=== PATIENT | female | born 1955 | race Caucasian/White ===

== ENCOUNTER → 2019-01-13 | Outpatient (CLI) | payer BC, MEDICARE ==
--- NOTE | 2019-01-13 09:16 | Diagnostic Imaging Report ---
PROCEDURE: US Gallbladder. TECHNIQUE: Multiple real-time grayscale images were obtained over the right upper quadrant in various projections. INDICATION: Left upper quadrant pain. The liver is normal in size at 14.1 cm. There does appear to be some increased echogenicity to the liver suggestive of hepatic steatosis. Portal vein is patent and shows normal direction of flow. No gallstones are identified. No wall thickening or biliary duct dilatation is seen. There may be minimal sludge in the gallbladder. Pancreas is obscured by bowel gas. Right kidney is unremarkable. There is no ascites. IMPRESSION: 1. Hepatic steatosis. 2. No evidence of cholelithiasis or acute cholecystitis. Dictated by: Dictated on workstation # [id number]
== END ==
LOC: RAD FS 08:07
PROVIDERS: ATTEND Surgery
DX: K76.0 Fatty (change of) liver, not elsewhere classified (principal)
CPT/HCPCS: 76705

== ENCOUNTER → 2019-02-24 | Outpatient (CLI) | payer MEDICARE ==
[~2019-02-24] MED LIST: CATHETER FLUSH 10 ML SYR IV PRN
--- NOTE | 2019-02-24 16:10 | Diagnostic Imaging Report ---
Indication: Right upper quadrant pain and nausea. Nuclear hepatobiliary study performed in the routine fashion with IV injection of 5.31 mCi technetium 99m Choletec. There is prompt uptake of the tracer by the liver. Tracer is visualized in the gallbladder within 30 minutes. Tracer is visualized in the biliary tree within about 15 to 20 minutes. Tracer is visualized in the small bowel within one hour. Patient was then given and ensure orally. The gallbladder ejection fraction was calculated. Calculated gallbladder ejection fraction was 22.5%. Impression: No evidence of cystic duct or common duct obstruction. There is however decreased gallbladder ejection fraction of 22.5% compatible with biliary dyskinesia. Dictated by: Dictated on workstation # [id number]
== END ==
LOC: CARD 11:34
PROVIDERS: ATTEND Surgery
DX: R10.13 Epigastric pain (principal); R10.11 Right upper quadrant pain; R11.0 Nausea; K82.8 Other specified diseases of gallbladder
CPT/HCPCS: 78227

== ENCOUNTER → 2019-03-11 | Outpatient (CLI) | payer MEDICARE ==
--- NOTE | 2019-03-11 13:28 | Diagnostic Imaging Report ---
INDICATION: Left-sided abdominal pain, status post cholecystectomy yesterday. TECHNIQUE: 2 supine view of the abdomen 10:24 AM CORRELATION STUDY: None FINDINGS: Lung bases are clear. Slight eventration of the right diaphragm. Cholecystectomy clips right upper quadrant. There does appear to be likely some degree of retained gastric contents. Mild severity of fecal retention. No findings to suggest high-degree bowel obstruction. No definitive pathologic intraabdominal calcifications or evidence for unexpected postoperative foreign body in the area is imaged. IMPRESSION: 1. Cholecystectomy clips. Nonobstructing-appearing bowel gas pattern. Dictated by: Dictated on workstation # [id number]
== END ==
LOC: RAD FS 10:12
PROVIDERS: ATTEND Surgery
DX: R10.9 Unspecified abdominal pain (principal); Z90.49 Acquired absence of other specified parts of digestive tract
CPT/HCPCS: 74018

== ENCOUNTER → 2019-03-25 | Outpatient (CLI) | payer MEDICARE ==
[~2019-03-25] MED LIST changes: +HOLD METFORMIN - RECEIVED CONTRAST 20 ML VIAL IV SCH; +IOHEXOL 350 MG/ML 100 ML (OMNIPAQUE 350) VIAL IV ONE; +NS 100 ML (IVPB) BAG IV ONE
[2019-03-25 09:21] LABS: CREATININE SERUM 0.95 MG/DL (0.60-1.30)
--- NOTE | 2019-03-25 11:34 | Diagnostic Imaging Report ---
PROCEDURE: CT abdomen and pelvis with contrast. TECHNIQUE: Multiple contiguous axial images were obtained through the abdomen and pelvis after administration of intravenous contrast. Auto Exposure Controls were utilized during the CT exam to meet ALARA standards for radiation dose reduction. INDICATION: Left-sided abdominal pain. Recent cholecystectomy. COMPARISON: None. FINDINGS: Included portions of the lung bases are clear. CT abdomen: Normal appendix cannot be adequately identified, but may be surgically absent. Small bowel loops are nondistended. Evaluation of kidneys suggests 6 mm calculus within the left renal pelvis. There is also suggestion of small 4 mm calculus within the superior pole on the left. These are, however, obscured by the postcontrast only nature of the exam. Conceivably, these findings could be artifactual and related to early excretion of contrast. There is no hydroureteronephrosis or other evidence of obstruction. No focal renal masses are seen. Liver is diffusely hypodense on this postcontrast exam consistent with background of hepatic steatosis. Otherwise, the liver, adrenal glands, spleen, and pancreas have a normal CT appearance. There is no loculated fluid collection, free fluid, nor free air within the abdomen. No abnormal mesenteric or retroperitoneal adenopathy is identified. Bony structures show no acute abnormalities. There is mild scattered calcified aortic and arterial atherosclerosis. CT pelvis: Urinary bladder is unopacified. No calculi are seen within urinary bladder. There is no loculated fluid collection, free fluid, nor free air within the pelvis. No abnormal lymph nodes are identified. Bony structures show no acute abnormalities. IMPRESSION: 1. Probable nonobstructive left renal calculi as described above. Alternatively, findings could be artifactual and related to excretion of contrast. Correlation with noncontrast exam would be of benefit. Additionally, if there is concern for underlying obstruction, nuclear medicine Lasix scan may be of benefit. 2. Hepatic steatosis. Dictated by: Dictated on workstation # [id number]
== END ==
LOC: RAD FS 08:29
PROVIDERS: ATTEND Surgery
DX: K76.0 Fatty (change of) liver, not elsewhere classified (principal); I70.0 Atherosclerosis of aorta
CPT/HCPCS: 36415; 74177; 82565; 84520

== ENCOUNTER → 2021-07-12 | Outpatient (CLI) | payer MEDICARE ==
--- NOTE | 2021-07-12 12:39 | Diagnostic Imaging Report ---
EXAMINATION: Abdomen, 1 view. HISTORY: Kidney stone. COMPARISON: 03/11/2019. FINDINGS: There are cholecystectomy clips. There is a mild amount of stool in the colon. There are no calcifications seen projecting over the kidneys or ureters. A phlebolith is present in the pelvis. IMPRESSION: No calcifications projecting over the kidneys or ureters. Dictated by: Dictated on workstation # [id number]
== END ==
LOC: RAD FS 11:28
PROVIDERS: ATTEND Family Medicine
DX: N20.0 Calculus of kidney (principal)
CPT/HCPCS: 74018

== ENCOUNTER → 2021-08-17 | Outpatient (CLI) | payer MEDICARE ==
--- NOTE | 2021-08-17 09:32 | Diagnostic Imaging Report ---
PROCEDURE: CT urinary tract, rule out kidney stone. TECHNIQUE: Multiple contiguous axial images were obtained through the abdomen and pelvis without the use of intravenous contrast. Auto Exposure Controls were utilized during the CT exam to meet ALARA standards for radiation dose reduction. INDICATION: Hematuria, right flank pain for one month Comparison is made with a prior study from 03/25/2019. The lung bases are clear. There is no effusion. The gallbladder is absent. The liver and bile ducts are normal. The spleen, pancreas and adrenals are normal. There is a 3 mm nonobstructing calculus in the upper pole of the left kidney. There is a punctate nonobstructing calculus in the lower pole of the right kidney. No mass or hydronephrosis is seen on either side. The ureters and bladder are normal. There is no pelvic mass. There is no acute bowel abnormality. There are scattered calcifications of the abdominal aorta with no aneurysmal dilatation. There is no adenopathy. There is no acute bony abnormality. IMPRESSION: There is a small nonobstructing stone in each kidney with no acute abnormality seen. Dictated by: Dictated on workstation # [id number]
== END ==
LOC: RAD FS 08:40
PROVIDERS: ATTEND Family Medicine
DX: N20.0 Calculus of kidney (principal)
CPT/HCPCS: 74176

== ENCOUNTER → 2022-07-25 | Outpatient (CLI) | payer MEDICARE ==
[2022-07-25 12:55] LABS: CREATININE SERUM 1.16 MG/DL (0.60-1.30)
--- NOTE | 2022-07-25 18:20 | Diagnostic Imaging Report ---
PROCEDURE: CT neck soft tissue with contrast. TECHNIQUE: Multiple contiguous axial images were obtained through the neck after the administration of contrast. Auto Exposure Controls were utilized during the CT exam to meet ALARA standards for radiation dose reduction. INDICATION: Throat pain. Neck mass. No relevant comparison available. FINDINGS: The visualized intracranial contents demonstrate no evidence of mass effect or abnormal intracranial enhancement. Orbits demonstrate previous ocular lens replacement. The paranasal sinuses demonstrate mucosal thickening in the right maxillary sinus and are otherwise clear. The middle ears and mastoids appear clear. The posterior nasopharynx and oropharynx appear appropriately symmetric. There is no displacement of the parapharyngeal fat planes. The base of the tongue is symmetric. There is no evidence of an abnormal process within the prevertebral or retropharyngeal space. There is no thickening of the epiglottis. The vallecula and piriform sinuses are well aerated and clear. The vocal folds are symmetric. There is no widening of the anterior commissure. There is no abnormal process within the preepiglottic or paraglottic fat planes. The subglottic trachea is unremarkable. The visualized portion of the esophagus is normal. The patient is status post a prior thyroidectomy. There appears to be a small remnant present on the left. No convincing evidence of a remnant on the right. There is a hyperdense nodule demonstrated below the hyoid and at the anterior margins of the thyroid cartilage that appears intimately associated with the strap muscles. 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 This measures 18 mm craniocaudal with maximum axial dimensions of 9 x 7 mm. The lesion is dense, and it is unclear if this is a component of enhancement or if there are dense contents within this process as there is no noncontrast portion of this exam. No pathologically enlarged cervical lymph nodes are evident. The vascular structures of the neck are unremarkable. The lung apices are clear. There are features of centrilobular emphysema. There is no acute process within the cervical spine. IMPRESSION: 1. Previous operative changes of thyroidectomy with an apparent small left-sided thyroid remnant. 2. Hyperdense rounded structure at midline below the thyroid extending into the upper margin of the thyroid cartilage and associated with the strap muscles. 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 3. Aerodigestive tract appears appropriately symmetric. 4. No abnormal mucosal-based mass lesion evident. 5. No pathologically enlarged cervical lymph nodes. Dictated by: Dictated on workstation # [id number]
== END ==
LOC: RAD FS 12:14
PROVIDERS: ATTEND Otolaryngology Otolaryngology/Facial Plastic Surgery
DX: R22.1 Localized swelling, mass and lump, neck (principal); R07.0 Pain in throat; Z90.89 Acquired absence of other organs
CPT/HCPCS: 36415; 70491; 82565; 84520; Q9967

== ENCOUNTER → 2023-01-17 | Outpatient (CLI) | payer MEDICARE | LOC: CARD 13:36 | PROVIDERS: ATTEND Family Medicine | DX: I34.0 Nonrheumatic mitral (valve) insufficiency (principal) | CPT/HCPCS: 93306 ==

== ENCOUNTER → 2023-02-12 | Outpatient (CLI) | payer MEDICARE ==
[~2023-02-12] MED LIST changes: -CATHETER FLUSH 10 ML SYR IV PRN; -HOLD METFORMIN - RECEIVED CONTRAST 20 ML VIAL IV SCH; -IOHEXOL 350 MG/ML 100 ML (OMNIPAQUE 350) VIAL IV ONE; -NS 100 ML (IVPB) BAG IV ONE; +RT-ALBUTEROL SULF 2.5 MG/3 ML PRE-MIX VIAL INH ONE
== END ==
LOC: RT 10:45
PROVIDERS: ATTEND Nurse Practitioner Family
DX: R06.02 Shortness of breath (principal); Z87.891 Personal history of nicotine dependence
CPT/HCPCS: 94060; 94726; 94729

== ENCOUNTER 2023-03-26 14:20 | Emergency (ER) | payer MEDICARE, MEDICAID ==
[2023-03-26] MEDS ORDERED: ACETAMINOPHEN 500 MG TAB (TYLENOL) PO ONE (14:30)
[2023-03-26] MEDS ORDERED: LACTATED RINGERS 1,000 ML IV STA (14:30)
--- NOTE | 2023-03-26 14:34 | ED General ---
General Chief Complaint: General Problems/Pain Stated Complaint: DIZZINESS; GEN PAIN Source of Information: Patient, Family Exam Limitations: No Limitations History of Present Illness Date Seen by Provider: March 26, 2023 Time Seen by Provider: 14:21 Initial Comments 68-year-old female with past medical history most notable for COPD and hypertension coming in due to general malaise, general weakness, and lightheadedness. Symptoms started a few days ago, worsening today. At baseline, she does not drink a lot of fluids. Has not had anything to eat today, just feels like sleeping and just woke up after lunch. Family member came over, and brought her to the ER. She is walking, but feels more lightheaded with standing. Denies any vomiting, diarrhea, chest pain, shortness of breath, abdominal pain, nausea, focal weakness or numbness, headache, vision changes, neck stiffness, or any other concerns. She does not take any blood thinners. She denies any recent falls. She does feel like her body just aches and just feels generally bad. Allergies and Home Medications Allergies Coded Allergies: cephalexin (Unverified Allergy, Unknown, 02/24/19) duloxetine (Unverified Allergy, Unknown, 02/24/19) gentamicin (Unverified Allergy, Unknown, 02/24/19) Patient Home Medication List Home Medication List Reviewed: Yes Review of Systems Review of Systems Constitutional: No fever; malaise, weakness (General) EENTM: no symptoms reported Respiratory: no symptoms reported Cardiovascular: no symptoms reported Gastrointestinal: no symptoms reported Genitourinary: no symptoms reported Musculoskeletal: no symptoms reported Skin: no symptoms reported Psychiatric/Neurological: See HPI (Lightheaded) Hematologic/Lymphatic: No Symptoms Reported Past Bohilvf-Opoixg-Cqkmjs Hx Patient Social History Tobacco Use?: No Smoking Status: Former Smoker Use of E-Cig and/or Vaping dev: No Substance use?: No Alcohol Use?: No Physical Exam Vital Signs Vital Signs - First Documented 03/26/23 14:28 Temp 35.7 Pulse 83 Resp 18 B/P (MAP) 130/69 (89) Pulse Ox 96 O2 Delivery Room Air Capillary Refill : Height, Weight, BMI Height: '" Weight: lbs. oz. kg; BMI Method: General Appearance: No Apparent Distress, WD/WN Eyes: Bilateral Eye Normal Inspection, Bilateral Eye PERRL, Bilateral Eye EOMI HEENT: PERRL/EOMI, TMs Normal, Pharynx Normal, Other (Slightly dry mucous membrane) Neck: Full Range of Motion, Normal Inspection, Non Tender, Supple Respiratory: Chest Non Tender, Lungs Clear, Normal Breath Sounds, No Accessory Muscle Use, No Respiratory Distress Cardiovascular: Regular Rate, Rhythm, No Edema, Normal Peripheral Pulses Gastrointestinal: Normal Bowel Sounds, Non Tender, Soft; No Distended, No Guarding Back: Normal Inspection, No CVA Tenderness Extremity: Normal Capillary Refill, Normal Inspection, Normal Range of Motion, Non Tender, No Calf Tenderness, No Pedal Edema Neurologic/Psychiatric: Alert, Oriented x3, No Motor/Sensory Deficits, Normal Mood/Affect, application operations engineer II-XII Norm as Tested, Other (Normal ppuokp-hy-hneb, normal iahh-uu-fawf, normal visual winston and visual acuity, normal voice and speech) Skin: Normal Color, Warm/Dry Progress/Results/Core Measures Suspected Sepsis SIRS Temperature: Pulse: Respiratory Rate: Laboratory Tests 03/26/23 14:35: White Blood Count 9.9 Blood Pressure / Mean: Laboratory Tests 03/26/23 14:35: Creatinine 1.13, INR Comment 0.9, Platelet Count 236, Total Bilirubin 0.7 Results/Orders Lab Results Laboratory Tests Test 03/26/23 14:35 Range/Units White Blood Count 9.9 4.3-11.0 10^3/uL Red Blood Count 5.32 H 3.80-5.11 10^6/uL Hemoglobin 15.3 11.5-16.0 g/dL Hematocrit 47 35-52 % Mean Corpuscular Volume 87 80-99 fL Mean Corpuscular Hemoglobin 29 25-34 pg Mean Corpuscular Hemoglobin Concent 33 32-36 g/dL Red Cell Distribution Width 13.2 10.0-14.5 % Platelet Count 236 130-400 10^3/uL Mean Platelet Volume 9.1 9.0-12.2 fL Immature Granulocyte % (Auto) 0 % Neutrophils (%) (Auto) 66 42-75 % Lymphocytes (%) (Auto) 26 12-44 % Monocytes (%) (Auto) 6 0-12 % Eosinophils (%) (Auto) 2 0-10 % Basophils (%) (Auto) 0 0-10 % Neutrophils # (Auto) 6.6 1.8-7.8 10^3/uL Lymphocytes # (Auto) 2.5 1.0-4.0 10^3/uL Monocytes # (Auto) 0.6 0.0-1.0 10^3/uL Eosinophils # (Auto) 0.2 0.0-0.3 10^3/uL Basophils # (Auto) 0.0 0.0-0.1 10^3/uL Immature Granulocyte # (Auto) 0.0 0.0-0.1 10^3/uL Prothrombin Time 12.6 12.2-14.7 SEC INR Comment 0.9 0.8-1.4 Activated Partial Thromboplast Time 26 24-35 SEC Sodium Level 138 135-145 MMOL/L Potassium Level 4.4 3.6-5.0 MMOL/L Chloride Level 104 98-107 MMOL/L Carbon Dioxide Level 23 21-32 MMOL/L Anion Gap 11 5-14 MMOL/L Blood Urea Nitrogen 15 7-18 MG/DL Creatinine 1.13 0.60-1.30 MG/DL Estimat Glomerular Filtration Rate 52 BUN/Creatinine Ratio 13 Glucose Level 123 H 70-105 MG/DL Calcium Level 9.1 8.5-10.1 MG/DL Corrected Calcium 8.9 8.5-10.1 MG/DL Magnesium Level 2.5 H 1.6-2.4 MG/DL Total Bilirubin 0.7 0.1-1.0 MG/DL Aspartate Amino Transf (AST/SGOT) 27 5-34 U/L Alanine Aminotransferase (ALT/SGPT) 31 0-55 U/L Alkaline Phosphatase 127 40-136 U/L Troponin I < 0.30 <0.30 NG/ML Pro-B-Type Natriuretic Peptide 68.7 <125.0 PG/ML Total Protein 7.2 6.4-8.2 GM/DL Albumin 4.2 3.2-4.5 GM/DL Lipase 43 8-78 U/L My Orders Orders - MEGHAN URIBE MD Cbc With Automated Diff (03/26/23 14:30) Comprehensive Metabolic Panel (03/26/23 14:30) Lipase (03/26/23 14:30) Magnesium (03/26/23 14:30) Protime With Inr (03/26/23 14:30) Partial Thromboplastin Time (03/26/23 14:30) Probnp Fs (03/26/23 14:30) Troponin I Fs (03/26/23 14:30) Chest 1 View Ap/Pa Only (03/26/23 14:30) Ed Iv/Invasive Line Start (03/26/23 14:30) Ekg Tracing (03/26/23 14:30) Monitor-Rhythm Ecg Trace Only (03/26/23 14:30) Lactated Ringers (Lr 1000 Ml Iv Solution (03/26/23 14:30) Acetaminophen Tablet (Tylenol Tablet) (03/26/23 14:30) Medications Given in ED Current Medications Medications Dose Ordered Sig/Coco Route Start Time Stop Time Status Last Admin Dose Admin Acetaminophen 1,000 mg ONCE ONCE PO 03/26/23 14:30 03/26/23 14:32 DC 03/26/23 14:43 1,000 MG Vital Signs/I&O 03/26/23 03/26/23 14:28 15:12 Temp 35.7 Pulse 83 69 74 88 Resp 18 B/P (MAP) 130/69 (89) 111/58 (75) 105/70 (82) 79/43 (55) Pulse Ox 96 O2 Delivery Room Air Capillary Refill : Progress Note : Progress Note 68-year-old female with above history coming in feeling lightheaded, particularly with standing. ABCs were intact and vitals were stable on presentation. Orthostatic vitals however were positive. Blood pressure went from 111 systolic with laying, 105 sitting, and 79 standing with her being symptomatic. Heart rate went from 69 to 89 as well. Patient has been eating and drinking at a low amount at baseline. An IV was placed and basic labs were obtained were significant for her not being anemic, normal kidney function, essentially normal electrolytes, negative troponin. She was given a bolus of IV fluids, and on reassessment she is no longer orthostatic. EKG on my interpretation with no acute ischemic changes. Based on EKG and negative troponin, this is not consistent with ACS. Chest x- ray my interpretation with no obvious pneumonia, no pneumothorax, and no acute abnormality. Patient is well-appearing, feels better, and I believe stable for discharge with outpatient follow-up. She was sent home with strict return precautions ECG Initial ECG Impression Date: March 26, 2023 Initial ECG Impression Time: 14:50 Initial ECG Rate: 66 Initial ECG Rhythm: Normal Sinus Comment Narrow QRS, normal axis, no significant ST changes or T wave abnormalities Diagnostic Imaging Diagonstic Imaging: Xray (chest) Comments NAME: VIKAS BYRNES [facility] REC#: [id number] PT STATUS: REG ER : 1955 PHYSICIAN: MEGHAN URIBE MD ADMIT DATE: 03/26/23/ER FS Draft Date of Exam:03/26/23 CHEST 1 VIEW AP/PA ONLY INDICATION: Dyspnea with weakness and dizziness. COMPARISON: None. DISCUSSION: Single portable upright view of the chest was obtained. Postoperative changes noted along the base of the neck. Normal heart size. No consolidation, pleural fluid, or pneumothorax. No osseous abnormality. IMPRESSION: 1. No acute cardiopulmonary process. Dictated on workstation # [id number] Dict: 03/26/23 1444 Trans: 03/26/23 1445 [facility] [id number] Interpreted by: SARAH BRIDGES MD Electronically signed by: Departure Impression Primary Impression: Orthostatic dizziness Additional Impressions: Mild dehydration Viral syndrome Disposition: HOME, SELF-CARE Condition: Improved Departure-Patient Inst. Decision time for Depature: 15:45 Referrals: NITO HUGO MD (PCP) Primary Care Physician Patient Instructions: Orthostatic Hypotension (DC) Add. Discharge Instructions: You were orthostatic in the ER and meaning your blood pressure dropped when you stood up. This is why you are feeling lightheaded and dizzy. You likely have a viral illness that you are getting over during this time. Be sure to be drinking plenty of fluids as you were mildly dehydrated prior to getting the IV fluids here. Follow-up with your regular doctor in the next couple of days if you are not improving Work/School Note: Family Work Note Patient Received Medical Care In the Emergency Department On: March 26, 2023 Patient Will Be Able to Return to Work/School On: March 27, 2023 MEGHAN URIBE MD March 26, 2023 14:34
[2023-03-26 14:43] LABS: BASOPHILS % (AUTO) 0 % (0-10); EOSINOPHILS # (AUTO) 0.2 10^3/uL (0.0-0.3); EOSINOPHILS % (AUTO) 2 % (0-10); HEMATOCRIT 47 % (35-52); HEMOGLOBIN 15.3 g/dL (11.5-16.0); LYMPHOCYTES # (AUTO) 2.5 10^3/uL (1.0-4.0); LYMPHOCYTES % (AUTO) 26 % (12-44); MEAN CORPUSCULAR HEMOGLOBIN 29 pg (25-34); MEAN CORPUSCULAR HGB CONC 33 g/dL (32-36); MEAN CORPUSCULAR VOLUME 87 fL (80-99); MEAN PLATELET VOLUME 9.1 fL (9.0-12.2); MONOCYTES # (AUTO) 0.6 10^3/uL (0.0-1.0); MONOCYTES % (AUTO) 6 % (0-12); NEUTROPHILS # (AUTO) 6.6 10^3/uL (1.8-7.8); NEUTROPHILS % (AUTO) 66 % (42-75); PLATELET COUNT 236 10^3/uL (130-400); WHITE BLOOD COUNT 9.9 10^3/uL (4.3-11.0)
--- NOTE | 2023-03-26 14:45 | Diagnostic Imaging Report ---
INDICATION: Dyspnea with weakness and dizziness. COMPARISON: None. DISCUSSION: Single portable upright view of the chest was obtained. Postoperative changes noted along the base of the neck. Normal heart size. No consolidation, pleural fluid, or pneumothorax. No osseous abnormality. IMPRESSION: 1. No acute cardiopulmonary process. Dictated by: Dictated on workstation # [id number]
[2023-03-26 15:00] LABS: INR 0.9 (0.8-1.4); PROTHROMBIN TIME PATIENT 12.6 SEC (12.2-14.7)
[2023-03-26 15:12] VITALS: BP_SYST 105; BP_SYST 111; BP_SYST 79; BP_DIAS 43; BP_DIAS 58; BP_DIAS 70
[2023-03-26 15:18] LABS: ALANINE AMINOTRANSFERASE 31 U/L (0-55); ALKALINE PHOSPHATASE 127 U/L (40-136); BILIRUBIN,TOTAL 0.7 MG/DL (0.1-1.0); BUN/CREATININE RATIO 13; CALCIUM 9.1 MG/DL (8.5-10.1); CARBON DIOXIDE 23 MMOL/L (21-32); CHLORIDE 104 MMOL/L (98-107); CREATININE SERUM 1.13 MG/DL (0.60-1.30); GFR ESTIMATED 52; GLUCOSE 123 MG/DL (70-105); MAGNESIUM 2.5 MG/DL (1.6-2.4); SODIUM 138 MMOL/L (135-145)
[2023-03-26 15:19] LABS: ALBUMIN 4.2 GM/DL (3.2-4.5); LIPASE 43 U/L (8-78); TOTAL PROTEIN 7.2 GM/DL (6.4-8.2)
[2023-03-26 15:48] VITALS: BP 119/62
[2023-03-27 00:46] LABS: POTASSIUM 4.5 MMOL/L (3.6-5.0)
== END 2023-03-26 15:49 | disposition home or self-care (01) ==
LOC: EDUNIT# 14:20 → ER FS 14:21
DX: E86.0 Dehydration (principal); B34.9 Viral infection, unspecified; Z87.891 Personal history of nicotine dependence
CPT/HCPCS: 36415; 71045; 80053; 83690; 83735; 83880; 84484; 85025; 85610; 85730